=== PATIENT | female | born 1995 | race Caucasian/White ===

== ENCOUNTER 2019-07-08 04:29 | Emergency (ER) | payer OTHER, SELFPAY ==
[2019-07-08 04:36] VITALS: BP 119/101; PULSE 92; RESP 15; TEMP 36.7; O2SAT 98; BMI 27.3
--- NOTE | 2019-07-08 04:40 | DI.US.S_ITS ---
PROCEDURE: US ABDOMEN LIMITED INDICATIONS: EPIGASTRIC PAIN RADIATING TO BACK TECHNIQUE: Real-time focused scanning was performed of the abdomen, with image documentation. COMPARISON: None. FINDINGS: There is a 1.9 cm mobile gallstone seen. The gallbladder wall is not thickened, measuring 3 mm or less. No specific pericholecystic fluid is seen. The sonographic Garner sign is negative. There is no biliary dilatation, the common bile duct measures 4-5 mm. The pancreas is not well-seen. The liver is unremarkable. IMPRESSION: There is a mobile gallstone seen, without additional sonographic signs of cholecystitis. No biliary dilatation. Note: No significant discrepancy from the preliminary report. Dictated by: Bonifacio Ward M.D. on 07/08/2019 at 9:09 Approved by: Bonifacio Ward M.D. on 07/08/2019 at 9:10
--- NOTE | 2019-07-08 04:52 | PC.NURSE ---
patient reports no abdominal pain, she states her mouth started watering and she immetiatly threw up after. It was dark and she did not see the contents of the vomit.
[2019-07-08 04:58] LABS: Add Manual Diff / Slide Review NO; Basophils Absolute Auto 100 /uL (0-100); Basophils Percent Auto 0.7 % (0-2); Eosinophils Absolute Auto 100 /uL (0-450); Eosinophils Percent Auto 1.3 % (2-4); Hematocrit 43.3 % (36-46); Hemoglobin 15.5 g/dL (12.0-16.0); Lymphocytes Absolute Auto 4300 /uL (1100-4500); Lymphocytes Percent Auto 54.4 % (25-40); Mean Corpuscular HGB Conc 35.9 % (30-36); Mean Corpuscular Hemoglobin 30.8 PG (26-34); Monocytes Absolute Auto 700 /uL (0-900); Monocytes Percent Auto 9.1 % (3-14); Neutrophils Absolute Auto 2700 /uL (1500-7000); Neutrophils Percent Auto 34.5 % (50-75); Platelet Count 241 X10^3/uL (150-400); Red Blood Cell Count 5.03 X10^6/uL (4.0-5.2); Red Cell Distribution Width 12.8 % (11.6-14.8); White Blood Cell Count 7.9 X10^3/uL (4.5-11.0)
[2019-07-08 05:05] LABS: Alanine Aminotransferase 28 IU/L (<35); Albumin 4.4 g/dL (3.5-5.0); Albumin Globulin Ratio 1.6 (1.0-2.8); Alkaline Phosphatase 22 U/L (38-126); Aspartate Aminotransferase 29 IU/L (14-36); Bilirubin Total 0.4 mg/dL (0.2-1.3); Blood Urea Nitrogen 12 mg/dL (7-17); Calcium 9.9 mg/dL (8.4-10.2); Carbon Dioxide 27 mmol/L (22-32); Chloride 105 mmol/L (98-107); Estimated Glomerular Filt Rate > 60.0 mL/min (>60); Globulin 2.7 g/dL (1.7-4.1); Glucose 109 mg/dL (70-100); HEMOLYSIS < 15 (0-50); Lipase 129 U/L (23-300); Potassium 3.5 mmol/L (3.4-5.1); Sodium 141 mmol/L (137-145); Total Protein 7.1 g/dL (6.3-8.2)
--- NOTE | 2019-07-08 05:05 | ED_ITS ---
HPI - Abdominal Pain General Chief Complaint: Abdominal Pain Stated Complaint: gas bubble in stomach Time Seen by Provider: 07/08/19 04:31 Source: patient Mode of arrival: Ambulatory Limitations: no limitations History of Present Illness HPI narrative: 23-year-old female nonsmoker with benign medical history presents with a chief complaint of severe epigastric pain with radiation to the back off and on over the past month or so. She denies any obvious provocation or palliation. She presents tonight because she had a large volume of emesis just prior to arrival. She denies any fever or chills. She denies any injury. She has been having bowel movements without difficulty. MD complaint: abdominal pain Onset (ago): week(s) Pain Consistency: intermittent Location: epigastric Severity: severe Radiation: back Relieving factors: nothing Exacerbating factors: nothing Associated symptoms: nausea and vomiting Related Data Previous Rx's Medication Instructions Recorded hydrocodone-acetaminophen 1 tab PO Q4-6H PRN #10 tab 07/08/19 ondansetron 4 mg PO TID-QID PRN #10 tab 07/08/19 Allergies Allergy/AdvReac Type Severity Reaction Status Date / Time No Known Drug Allergies Allergy Verified 07/08/19 06:23 Review of Systems Constitutional Constitutional: Denies chills, Denies fatigue, Denies fever(s), Denies frequent falls, Denies lethargy and Denies weakness Eyes Eyes: Denies change in vision, Denies eye discharge, Denies irritation and Denies loss of vision ENT Ears, Nose, Mouth, and Throat: Denies change in voice, Denies dizziness, Denies neck pain, Denies sore throat and Denies throat swelling Cardiovascular Cardiovascular: Denies chest pain, Denies irregular heart rhythm, Denies lightheadedness, Denies palpitations, Denies dyspnea, Denies dyspnea on exertion and Denies orthopnea Respiratory Respiratory: Denies cough, Denies dyspnea, Denies dyspnea on exertion and Denies wheezing Gastrointestinal Gastrointestinal: Reports abdominal pain, Denies change in bowel habits, Denies diarrhea, Reports nausea and Reports vomiting Genitourinary Genitourinary: Denies hematuria, Denies flank pain, Denies urinary incontinence and Denies urinary urgency Musculoskeletal Musculoskeletal: Reports back pain, Denies muscle weakness, Denies neck pain, Denies numbness and Denies tingling Integumentary/Breasts Skin/Breast: Denies pruritus, Denies erythema, Denies rash and Denies wounds Neurologic Neurologic: Denies behavioral changes, Denies confusion, Denies dizziness, Denies frequent falls, Denies loss of vision, Denies numbness, Denies tingling and Denies weakness Psychiatric Psychiatric: Denies anxiety, Denies behavioral changes, Denies confusion, Denies depression, Denies homicidal ideation and Denies suicidal ideation Endocrine Endocrine: Denies fatigue, Denies flushing and Denies palpitations Hematologic/Lymphatic Hematologic/Lymphatic: Denies easy bruising Allergic/Immunologic Allergic/Immunologic: Denies urticaria, Denies throat swelling and Denies wheezing Patient History Social History Smoking Status: Never smoker alcohol intake frequency: a few times a month Substance Use Type: does not use Exam Narrative Exam Narrative: GENERAL: [23] year old patient appears stated age. Well- nourished, well-developed patient, in mild distress. HEAD: Atraumatic. Normocephalic. EYES: Pupils equal round and reactive. Extraocular motions intact. No scleral icterus. No injection or drainage. ENT: Nose without bleeding, purulent drainage. Throat without erythema, tonsillar hypertrophy or exudate. Airway patent. NECK: Trachea midline. Non tender CARDIOVASCULAR: Regular rate and rhythm without murmurs, gallops, or rubs. RESPIRATORY: Clear to auscultation. Breath sounds equal bilaterally. No wheezes, rales, or rhonchi. GASTROINTESTINAL: Abdomen soft, non-tender, nondistended. EXTREMITIES: No edema or joint tenderness. BACK: Nontender without deformity or crepitance. No flank tenderness. NEURO: AOx3. SKIN: No rash or erythema of visible areas Initial Vital Signs Initial Vital Signs: Vital Signs Temperature 98.1 F 07/08/19 04:36 Pulse Rate 92 H 07/08/19 04:36 Respiratory Rate 15 07/08/19 04:36 Blood Pressure 119/101 H 07/08/19 04:36 Pulse Oximetry 98 07/08/19 04:36 Course Orders Ordered: Discontinued Medications Hydrocodone Bitart/Acetaminophen (Vicodin 5/325 Prepack) 1 bottle MISC SEEINSTR ONE Stop: 07/08/19 05:20 Last Admin: 07/08/19 05:31 Dose: 1 bottle Documented by: MAHIN Sodium Chloride (Normal Saline 0.9%) 1,000 mls @ 1,000 mls/hr IV BOLUS ONE Stop: 07/08/19 05:37 Last Infusion: 07/08/19 05:31 Dose: 0 mls/hr Documented by: Admin: 07/08/19 05:11 Dose: 1,000 mls/hr Documented by: MAHIN Ondansetron HCl (Zofran Odt Prepack) 1 bottle MISC SEEINSTR ONE Stop: 07/08/19 05:20 Last Admin: 07/08/19 05:31 Dose: 1 bottle Documented by: MAHIN Vital Signs Vital signs: Vital Signs - 8 hr 07/08/19 04:36 Temperature 98.1 F Pulse Rate 92 H Respiratory Rate 15 Blood Pressure 119/101 H Pulse Oximetry 98 MDM - Abdominal Pain Lab Data Result diagrams: 07/08/19 04:45 07/08/19 04:45 Labs: Lab Results 07/08/19 07/08/19 Range/Units 04:45 04:45 WBC 7.9 (4.5-11.0) X10^3/uL RBC 5.03 (4.0-5.2) X10^6/uL Hgb 15.5 (12.0-16.0) g/dL Hct 43.3 (36-46) % MCV 86.0 (80-100) fL MCH 30.8 (26-34) PG MCHC 35.9 (30-36) % RDW 12.8 (11.6-14.8) % Plt Count 241 (150-400) X10^3/uL Neut % (Auto) 34.5 L (50-75) % Lymph % (Auto) 54.4 H (25-40) % [place] % (Auto) 9.1 (3-14) % Eos % (Auto) 1.3 L (2-4) % Baso % (Auto) 0.7 (0-2) % Neut # (Auto) 2700 (8646-1280) /uL Lymph # (Auto) 4300 (0602-7750) /uL [place] # (Auto) 700 (0-900) /uL Eos # (Auto) 100 (0-450) /uL Baso # (Auto) 100 (0-100) /uL Sodium 141 (137-145) mmol/L Potassium 3.5 (3.4-5.1) mmol/L Chloride 105 (98-107) mmol/L Carbon Dioxide 27 (22-32) mmol/L BUN 12 (7-17) mg/dL Creatinine 1.00 (0.52-1.04) mg/dL Estimated GFR > 60.0 (>60) mL/min BUN/Creatinine Ratio 12.0 (6-22) Glucose 109 H (70-100) mg/dL Calcium 9.9 (8.4-10.2) mg/dL Total Bilirubin 0.4 (0.2-1.3) mg/dL AST 29 (14-36) IU/L ALT 28 (<35) IU/L Alkaline Phosphatase 22 L (38-126) U/L Total Protein 7.1 (6.3-8.2) g/dL Albumin 4.4 (3.5-5.0) g/dL Globulin 2.7 (1.7-4.1) g/dL Albumin/Globulin Ratio 1.6 (1.0-2.8) Lipase 129 (23-300) U/L Imaging Data US - abdomen: Radiologist's impression: [place] [address] Ultrasound Report Signed Patient: Royal Zepeda [facility]#: [id number] : 1995Acct:[id number] Age/Sex: 23 / FDate of Service: 07/08/19 Loc: ED Accession Number: [id number] Procedure: US abdomen limited Ordering Provider: Karl Acuña D.O. PROCEDURE: US ABDOMEN LIMITED INDICATIONS: EPIGASTRIC PAIN RADIATING TO BACK TECHNIQUE: Real-time focused scanning was performed of the abdomen, with image documentation. COMPARISON: None. FINDINGS: There is a 1.9 cm mobile gallstone seen. The gallbladder wall is not thickened, measuring 3 mm or less. No specific pericholecystic fluid is seen. The sonographic Garner sign is negative. There is no biliary dilatation, the common bile duct measures 4-5 mm. The pancreas is not well-seen. The liver is unremarkable. IMPRESSION: There is a mobile gallstone seen, without additional sonographic signs of cholecystitis. No biliary dilatation. Note: No significant discrepancy from the preliminary report. Dictated by: Bonifacio Ward M.D. on 07/08/2019 at 9:09 Approved by: Bonifacio Ward M.D. on 07/08/2019 at 9:10 Discharge Plan Departure Patient Disposition: Home Clinical Impression: Gallbladder pain Discharge Date/Time: 07/08/19 05:42 Instructions: Gallstones Activity Restrictions/Additional Instructions: *You have been diagnosed with [cholelithiasis] *What to do: *Take medications as directed *Follow up with your primary care provider in 2-3 days, call for an appointment. Let them know you were seen in the Emergency Department and that we ask that you be seen in follow up *Return to ER if you should have any new, worsening or concerning symptoms, such as [worsening pain, fever over 101 F, yellowing of the skin, persistent vomiting or other bothersome symptoms Prescriptions: New hydrocodone-acetaminophen 5-325 mg tablet 1 tab PO Q4-6H PRN (Reason: pain) Qty: 10 RF: 0 ondansetron 4 mg tablet,disintegrating 4 mg PO TID-QID PRN (Reason: nausea and vomiting) Qty: 10 RF: 0 Referrals: Tess Benavides MD [Physician] -
[2019-07-08] MEDS: SODIUM CHLORIDE 0.9% 1,000 ML 1000 ML IV (05:11)
[2019-07-08 05:13] VITALS: BP 108/72; PULSE 93; RESP 15; O2SAT 97
[2019-07-08] MEDS: HYDROCODONE/ACET 5/325 PREPACK 1 BOTTLE MISC (05:31)
[2019-07-08] MEDS: ONDANSETRON 4 MG ODT PREPACK 1 BOTTLE MISC (05:31)
== END 2019-07-08 05:42 | disposition home or self-care (01) ==
LOC: ED 05:30
PROVIDERS: Emergency Provider Emergency Medicine
DX: K80.20 Calculus of gallbladder without cholecystitis without obstruction (principal)
CPT/HCPCS: 36415; 76705; 80053; 83690; 85025; 99283; 99284

== ENCOUNTER 2019-07-25 11:56 | Day surgery (SDC) | payer OTHER, SELFPAY ==
[2019-07-25] VITALS (12 sets, daily range): BP systolic 90–126; BP diastolic 50–76; PULSE 55–90; RESP 9–20; TEMP 36.2–37.2; O2SAT 94–100; BMI 33.1
--- NOTE | 2019-07-25 | PATH_ITS ---
[facility] Accession Number: [id number] . 01 Material submitted: . gallbladder - GALLBLADDER . 02 Diagnosis: Gallbladder, Laparoscopic Cholecystectomy: Gallbladder with cholesterolosis and cholelithiasis. One benign cystic duct lymph node (0). MRV 07/27/2019 1040 Local . 02 Electronically signed: . Qiana Priest MD, Pathologist NPI- [id number] . 01 Gross description: . Received in formalin, labeled gallbladder, is an intact gallbladder (length-9.2 cm, diameter-2.6 cm) with green smooth shiny serosa and a patent cystic duct. A possible lymph node (1.0 x 0.8 x 0.4 cm) is identified. The lumen contains dark green viscous bile and on finney-yellow smooth hard calculus (1.8 x 1.3 x 0.8 cm) with a clear crystalline cut surface. The mucosa is green smooth and flat. The wall is up to 0.1 cm thick. No nodules, masses or lesions are identified. Section code: (A1) cystic duct resection margin and two serial sections from the body; (A2) two longitudinal sections from the fundus; (A3) one bisected lymph node. ([id number]) /MRV 07/26/2019 1338 Local . 02 Pathologist provided ICD-10: K80.50 . 02 CPT . 498805 Performed at: 01 [facility] [address] [id number] MD Gigi Peace MD Phone: [phone] Performed at: 02 [facility] [address] [place], [place] [id number] MD Fartun Alcantar MD Phone: [phone]
[2019-07-25] MEDS: LACTATED RINGERS 1,000 ML 100 ML IV ×2 (12:31→14:41)
--- NOTE | 2019-07-25 12:33 | PM.PREOP ---
Pre-operative Note Interval Note History & Physical reviewed/Exam performed by Physician: Yes Changes to H&P: No
[2019-07-25] MEDS: CEFAZOLIN 2 GM/100 ML FROZ.PIGGY IV (12:59)
--- NOTE | 2019-07-25 13:31 | SUR.OPER ---
Supine on padded OR bed, head on pillow, safety belt at thigh, left arm padded and tucked at side. Right arm secured on padded arm oard <90 degrees abduction. Legs uncrossed. Padded footboard in place. Tape over blanket to secure lower legs.
[2019-07-25] MEDS: BUPIVACAINE 0.25% (PF) VIAL 30 ML INJ (13:36)
--- NOTE | 2019-07-25 14:31 | PM.OP.1 ---
Operative Date/Time/Diagnoses Date of procedure: 07/25/19 Time of procedure: 14:31 Pre-op diagnosis: Biliary colic Post-op diagnosis: same Procedure & Clinicians Procedure: Laparoscopic cholecystectomy Same procedure as scheduled: Yes Indications: 23-year-old female with biliary colic and ultrasound demonstrating gallstones presents for elective cholecystectomy. Surgeon: Sotero Tejeda Click Yes if Unassisted: Yes Anesthesia Type: General Operative Notes Findings: Gallstone Estimated Blood Loss (mL): 50 Procedure in detail: The patient was brought to the operating room placed supine on the table. Bilateral lower extremity compression devices were applied. General anesthesia was induced and they were intubated with an endotracheal tube. They received 2 g of Ancef prior to skin incision. A time-out was performed to ensure the correct patient procedure necessary equipment within the operating room. They were then prepped and draped in the usual sterile fashion. Infraumbilical incision was made the umbilical stalk was grasped and elevated and the fascia was sharply incised. The abdomen was entered atraumatically. A 10 mm trocar was then placed into the abdomen. Pneumoperitoneum was established. The laparoscopic camera was inserted into the abdomen inspection was made that demonstrated no evidence of injury upon entry. We then placed our working ports the 1st 5 mm port high in the epigastrium and then 2 in the right upper quadrant. The gallbladder was grasped and retracted over the liver and grasped laterally by the fundus. The triangle of Calot was exposed. Gallbladder was without evidence of clot of acute cholecystitis. The triangle of calot was then skeletonized using hook electrocautery and demonstrated the cystic duct clearly entering the gallbladder the cystic artery and the liver and in the background. With the critical view of safety established the cystic duct was clipped twice proximally and once distally and then sharply divided and the cystic artery was taken in the same fashion. Next the gallbladder was removed from the liver bed using electro cautery. The liver bed was then inspected for hemostasis and this was achieved. The abdomen was irrigated with sterile saline and inspection was made that showed the clips in good position. The specimen was removed using Endo-Catch. The abdomen was desufflated. The the fascia of the umbilicus was closed with 0 Vicryl in a lubgra-um-whbrn fashion. Skin incisions were irrigated and closed with 4-0 Monocryl. The wounds were sealed with Dermabond. Patient emerged from general anesthesia was extubated and transferred to the postoperative care unit missed stable condition. The sponge and instrument count at the end of the operation was correct. Complications: none Post-operative Condition: stable Disposition: same day surgery
[2019-07-25] MEDS: fentaNYL 100 MCG/2 ML INJ IV (14:37)
--- NOTE | 2019-07-25 14:50 | SUR.PHASEI ---
Addendum entered by Tamika Emerson R.N. 07/25/19 15:26: states that she feels that her breathing is normal; no distress. Original Note: 1445 Sitting up, drinking water, states that her pain has improved and that she's tolerating it well. Applesauce given in prep for PO rx
[2019-07-25] MEDS: OXYCODONE/ACETAMINOPHEN 5/325 TABLET 1 TAB PO (14:53)
--- NOTE | 2019-07-25 15:21 | SUR.PHASEI ---
1423 to [facility], very drowsy, acknowledges minor pain, doesn't want Rx 1430 c/o difficulty breathing shortly after arrival, resp unlabored, lungs clear/diminished, coughed, which improved air exchange. C/o feeling like her airway is restricted in her throat; no stridor audible or w/stethascope. 1437 Dr. Tejeda here, informed of the above; no orders, no positional evidence, no evidence of difficulty breathing; explained to the patient her lung sounds and O2 sat. HOB up. States that she has anxiety; denied taking medication for it at home or wanting medication presently.
--- NOTE | 2019-07-25 15:26 | SUR.PHASEI ---
1517 to [facility], report given, dozing intermittently. Report given, bag given so that she can get her cell phone and call her ride and mother. Stable
== END 2019-07-25 16:13 | disposition home or self-care (01) ==
PROVIDERS: Visit Provider Surgery
PROC: 0FT44ZZ Resection of Gallbladder, Percutaneous Endoscopic Approach (ICD-10-PCS; CPT 47562; principal; 2019-07-25 15:45)
DX: K80.40 Calculus of bile duct with cholecystitis, unspecified, without obstruction (principal); F41.9 Anxiety disorder, unspecified; E66.9 Obesity, unspecified
CPT/HCPCS: 47562; J0690; J1100; J1170; J1885; J2250; J2405; J2704; J3010

== ENCOUNTER 2019-09-11 18:51 | Emergency (ER) | payer OTHER, SELFPAY ==
[2019-09-11 18:51] VITALS: BP 128/79; PULSE 71; RESP 18; TEMP 36.5; O2SAT 100; BMI 31.8
[2019-09-11 19:24] LABS: INR 0.9 (0.9-1.3); Prothrombin Time 10.6 SECONDS (10.1-12.7)
[2019-09-11 19:26] LABS: Add Manual Diff / Slide Review NO; Basophils Absolute Auto 0 /uL (0-100); Basophils Percent Auto 0.4 % (0-2); Eosinophils Absolute Auto 100 /uL (0-450); Eosinophils Percent Auto 1.3 % (2-4); Hematocrit 40.5 % (36-46); Hemoglobin 14.2 g/dL (12.0-16.0); Lymphocytes Absolute Auto 3500 /uL (1100-4500); Lymphocytes Percent Auto 43.7 % (25-40); Mean Corpuscular HGB Conc 35.1 % (30-36); Mean Corpuscular Hemoglobin 30.9 PG (26-34); Mean Corpuscular Volume 88.1 fL (80-100); Monocytes Absolute Auto 700 /uL (0-900); Monocytes Percent Auto 8.9 % (3-14); Neutrophils Absolute Auto 3700 /uL (1500-7000); Neutrophils Percent Auto 45.7 % (50-75); Platelet Count 259 X10^3/uL (150-400); White Blood Cell Count 8.1 X10^3/uL (4.5-11.0)
[2019-09-11 19:27] LABS: PTT Partial Thromboplastin Tim 30 SECONDS (26.4-36.2)
[2019-09-11 19:28] LABS: Alanine Aminotransferase 31 IU/L (<35); Albumin 4.3 g/dL (3.5-5.0); Albumin Globulin Ratio 1.3 (1.0-2.8); Alkaline Phosphatase 22 U/L (38-126); Aspartate Aminotransferase 40 IU/L (14-36); BUN Creatinine Ratio 17.5 (6-22); Bilirubin Total 0.3 mg/dL (0.2-1.3); Blood Urea Nitrogen 14 mg/dL (7-17); Calcium 9.5 mg/dL (8.4-10.2); Carbon Dioxide 29 mmol/L (22-32); Chloride 103 mmol/L (98-107); Estimated Glomerular Filt Rate > 60.0 mL/min (>60); Globulin 3.2 g/dL (1.7-4.1); Glucose 106 mg/dL (70-100); HEMOLYSIS < 15 (0-50); Lipase 115 U/L (23-300); Potassium 3.6 mmol/L (3.4-5.1); Sodium 140 mmol/L (137-145); Total Protein 7.5 g/dL (6.3-8.2)
[2019-09-11] MEDS: SODIUM CHLORIDE 0.9% 1,000 ML 1000 ML IV (20:15)
[2019-09-11] MEDS: ONDANSETRON 4 MG/2 ML INJ IV (20:15)
--- NOTE | 2019-09-11 20:44 | ED_ITS ---
HPI - Abdominal Pain General Chief Complaint: Abdominal Pain Stated Complaint: Severe Abd Pain and Nausea Time Seen by Provider: 09/11/19 20:44 Source: patient Mode of arrival: Ambulatory Limitations: no limitations History of Present Illness HPI narrative: The patient presents with epigastric abdominal pain. The pain has been present for months, but more severe the last couple weeks. The pain is sharp, occurring in the mid abdomen epigastric area. The pain does not radiate. The pain is sometimes worsened after eating. She has no pain shooting to her chest. She has no associated dyspnea. She is a nonsmoker. She does use alcohol. She does not use drugs. She is on no medications. In their previous evaluation for abdominal pain, gallstones for discovered. She underwent cholecystectomy about 6 weeks ago. The pain is not changed following cholecystectomy. She has no other significant medical problems. She is on no regular prescribed medications. Related Data Home Medications Medication Instructions Recorded Confirmed biotin 1 mg PO DAILY 07/25/19 08/14/19 multivitamin [Multiple Vitamins] 1 tab PO DAILY 07/25/19 08/14/19 Previous Rx's Medication Instructions Recorded hydrocodone-acetaminophen 1 tab PO Q4-6H PRN #10 tab 07/08/19 ondansetron 4 mg PO TID-QID PRN #10 tab 07/08/19 acetaminophen [Tylenol] 650 mg PO QID PRN #60 cap 07/25/19 docusate sodium [Colace] 100 mg PO BID #30 cap 07/25/19 tramadol 50 mg PO Q6H PRN #30 tab 07/25/19 famotidine [Pepcid] 20 mg PO DAILY #30 tab 09/11/19 Allergies Allergy/AdvReac Type Severity Reaction Status Date / Time No Known Drug Allergies Allergy Verified 09/11/19 18:57 Review of Systems Review of Systems ROS Unobtainable: All systems reviewed & are unremarkable except as noted in HPI and below Constitutional Constitutional: Denies chills, Denies fever(s), Denies lethargy and Denies weakness Eyes Comments: No eye changes. ENT Ears, Nose, Mouth, and Throat: Denies mouth lesions and Denies sore throat Cardiovascular Cardiovascular: Denies chest pain Respiratory Respiratory: Denies chest congestion and Denies cough Gastrointestinal Gastrointestinal: Reports as per HPI, Reports abdominal pain, Denies bloating, Denies diarrhea and Denies vomiting Genitourinary Comments: Currently on her menstrual cycle. No dysuria. Musculoskeletal Musculoskeletal: Denies back pain and Denies numbness Integumentary/Breasts Skin/Breast: Denies pruritus, Denies erythema and Denies rash Neurologic Neurologic: Denies numbness and Denies weakness Patient History Medical History Anxiety (Acute) Obesity (Acute) Surgical History (Updated 09/11/19 @ 22:08 by Regan Walls MD) History of cholecystectomy (Acute) History of tonsillectomy (Acute) Social History household members: friend(s) Smoking Status: Never smoker alcohol intake: current Smoking Status: Never smoker alcohol intake frequency: a few times a month Substance Use Type: does not use Exam Initial Vital Signs Initial Vital Signs: Vital Signs Temperature 97.7 F 09/11/19 18:51 Pulse Rate 71 09/11/19 18:51 Respiratory Rate 18 09/11/19 18:51 Blood Pressure 128/79 09/11/19 18:51 Pulse Oximetry 100 09/11/19 18:51 Const General: cooperative and well developed Nutritional Appearance: well nourished HENMT Mouth: oral mucosae normal Eyes Conjunctivae: conjunctivae normal and other (No icterus) Resp Effort & Inspection: normal respiratory effort and able to speak in complete sentences Auscultation: clear to auscultation bilaterally, no rales, no rhonchi and no wheezes Cardio Rate: regular rate Rhythm: regular rhythm Heart Sounds: S1 normal and S2 normal GI Other: Epigastric abdominal pain with slight guarding, no distention. No palpable masses. Normal bowel sounds. Back/Spine/Pelvis Back: No CVA tenderness Skin Lesions: lesions noted Rashes: rash noted Neuro General: alert, oriented x3, gait normal and no focal motor deficits Speech: speech normal Extrem General: no pedal edema and no calf tenderness Course Course Course Narrative: The patient was given IV Protonix, a GI cocktail. She notes the GI cocktail has numbness her esophagus or stomach. She is feeling better. LFTs are normal. Labs are otherwise normal. The source for pain is likely associated with the stomach. I discussed GERD versus gastritis versus an ulcer. She received Protonix, she will be discharged on Pepcid. She is advised arrange follow-up with her doctor at [facility]. Orders Ordered: ED Orders 09/11/19 19:00 Complete Blood Count AUTO DIFF Stat Comprehensive Metabolic Panel Stat Lipase Stat Partial Thromboplastin Time Stat Prothrombin Time INR Stat 09/11/19 19:10 EKG-12 Lead Stat Discontinued Medications Al Hydrox/Mg Hydrox/Simethicone 20 ml/ Lidocaine HCl 15 ml 0 ml PO NOW ONE Stop: 09/11/19 20:54 Last Admin: 09/11/19 21:21 Dose: 35 ml Documented by: SARAI Sodium Chloride (Normal Saline 0.9%) 1,000 mls @ 1,000 mls/hr IV BOLUS ONE Stop: 09/11/19 21:09 Last Infusion: 09/11/19 21:32 Dose: 0 mls/hr Documented by: Admin: 09/11/19 20:15 Dose: 1,000 mls/hr Documented by: BRAULIO Ondansetron HCl (Zofran) 4 mg IV NOW ONE Stop: 09/11/19 20:11 Last Admin: 09/11/19 20:15 Dose: 4 mg Documented by: BRAULIO Pantoprazole Sodium (Protonix) 40 mg IV NOW ONE Stop: 09/11/19 20:53 Last Admin: 09/11/19 21:21 Dose: 40 mg Documented by: SARAI Vital Signs Vital signs: Vital Signs - 8 hr 09/11/19 18:51 Temperature 97.7 F Pulse Rate 71 Respiratory Rate 18 Blood Pressure 128/79 Pulse Oximetry 100 MDM - Abdominal Pain Lab Data Result diagrams: 09/11/19 19:00 09/11/19 19:00 Labs: Lab Results 09/11/19 09/11/19 09/11/19 Range/Units 19:00 19:00 19:00 WBC 8.1 (4.5-11.0) X10^3/uL RBC 4.60 (4.0-5.2) X10^6/uL Hgb 14.2 (12.0-16.0) g/dL Hct 40.5 (36-46) % MCV 88.1 (80-100) fL MCH 30.9 (26-34) PG MCHC 35.1 (30-36) % RDW 13.0 (11.6-14.8) % Plt Count 259 (150-400) X10^3/uL Neut % (Auto) 45.7 L (50-75) % Lymph % (Auto) 43.7 H (25-40) % [place] % (Auto) 8.9 (3-14) % Eos % (Auto) 1.3 L (2-4) % Baso % (Auto) 0.4 (0-2) % Neut # (Auto) 3700 (6643-6750) /uL Lymph # (Auto) 3500 (3557-8551) /uL [place] # (Auto) 700 (0-900) /uL Eos # (Auto) 100 (0-450) /uL Baso # (Auto) 0 (0-100) /uL PT 10.6 (10.1-12.7) SECONDS INR 0.9 (0.9-1.3) APTT 30 (26.4-36.2) SECONDS Sodium 140 (137-145) mmol/L Potassium 3.6 (3.4-5.1) mmol/L Chloride 103 (98-107) mmol/L Carbon Dioxide 29 (22-32) mmol/L BUN 14 (7-17) mg/dL Creatinine 0.80 (0.52-1.04) mg/dL Estimated GFR > 60.0 (>60) mL/min BUN/Creatinine Ratio 17.5 (6-22) Glucose 106 H (70-100) mg/dL Calcium 9.5 (8.4-10.2) mg/dL Total Bilirubin 0.3 (0.2-1.3) mg/dL AST 40 H (14-36) IU/L ALT 31 (<35) IU/L Alkaline Phosphatase 22 L (38-126) U/L Total Protein 7.5 (6.3-8.2) g/dL Albumin 4.3 (3.5-5.0) g/dL Globulin 3.2 (1.7-4.1) g/dL Albumin/Globulin Ratio 1.3 (1.0-2.8) Lipase 115 (23-300) U/L Point of care testing: Point of Care Testing Test Results Negative Urine Dip Bedside Urine Glucose Negative Bedside Urine Bilirubin - Negative Bedside Urine Ketone - Negative Urine Specific [place] 1.025 Bedside Urine Occult Blood +/- Bedside Urine pH 6.5 Bedside Urine Protein - Negative Bedside Urine Urobilinogen - Negative Bedside Urine Nitrite - Negative Bedside Urine Leukocytes - Negative Esterase Discharge Plan Departure Patient Disposition: Home Clinical Impression: Epigastric abdominal pain Instructions: DI for Abdominal Pain-Adult Activity Restrictions/Additional Instructions: The pain seems to be coming from her stomach. This could be an ulcer, gastritis, or acid reflux. The treatment is similar for all of these stomach and esophagus issues. I will start you on 1 of the medications. Pepcid 20 mg daily. Recheck with her doctor in 10 days the see if symptoms have improved. Return to the ER as needed. Prescriptions: New famotidine [Pepcid] 20 mg tablet 20 mg PO DAILY Qty: 30 RF: 0 No Action hydrocodone-acetaminophen 5-325 mg tablet 1 tab PO Q4-6H PRN (Reason: pain) Qty: 10 RF: 0 ondansetron 4 mg tablet,disintegrating 4 mg PO TID-QID PRN (Reason: nausea and vomiting) Qty: 10 RF: 0 multivitamin [Multiple Vitamins] Tablet 1 tab PO DAILY RF: 0 biotin 1 mg Capsule 1 mg PO DAILY RF: 0 tramadol 50 mg tablet 50 mg PO Q6H PRN (Reason: pain) Qty: 30 RF: 0 docusate sodium [Colace] 100 mg capsule 100 mg PO BID Qty: 30 RF: 0 acetaminophen [Tylenol] 325 mg capsule 650 mg PO QID PRN (Reason: pain) Qty: 60 RF: 0 Referrals: Mojgan Reyes [Primary Care Provider] -
[2019-09-11] MEDS: MAG HYDROX/ALUMINUM/SIMETH SUS 20 ML, LIDOCAINE VISCOUS 2% 15 ML PO (21:21)
[2019-09-11] MEDS: PANTOPRAZOLE 40 MG VIAL IV (21:21)
[2019-09-11 22:26] VITALS: BP 111/76; PULSE 61; RESP 14; TEMP 36.9; O2SAT 100
== END 2019-09-11 22:28 | disposition home or self-care (01) ==
PROVIDERS: Emergency Medicine; Emergency Provider Emergency Medicine
DX: R10.13 Epigastric pain (principal)
CPT/HCPCS: 36415; 80053; 81003; 81025; 83690; 85025; 85610; 85730; 93005; 96361; 96374; 96375; 99284; C9113; J2405

== ENCOUNTER 2020-08-11 18:28 | Emergency (ER) | payer OTHER, SELFPAY ==
[2020-08-11 18:38] VITALS: PULSE 105; O2SAT 98
[2020-08-11 18:39] VITALS: BP 143/87; PULSE 104; O2SAT 99
--- NOTE | 2020-08-11 18:40 | DI.US.S_ITS ---
PROCEDURE: US PELVIC COMPLETE INDICATIONS: BLEEDING X 8 MOS TECHNIQUE: Real-time scanning was performed of the pelvic organs, with image documentation. Additional endovaginal scanning was necessary due to incomplete visualization of the adnexal and endometrial structures by transabdominal scanning. COMPARISON: None. FINDINGS: Transabdominal scanning: Limited scanning through the kidneys shows no hydronephrosis. No pathologic free abdominal or pelvic fluid. Endovaginal scanning: Uterus: Uterus is retroverted measuring 5.7 x 3.5 x 5.4 cm. The endometrium measures 5.6 mm in combined thickness. Endometrium appears slightly heterogeneous. Ovaries: Right ovary measures 3.1 x 1.3 x 1.4 cm. Left ovary measures 4.5 x 2.7 x 3.3 cm. There is a 3.1 x 2.4 x 2.9 cm simple appearing cyst in the left ovary. IMPRESSION: 1. Endometrium appears slightly heterogeneous but normal in thickness. 2. A simple appearing cyst in left ovary measuring 3.1 cm. A follow-up pelvic ultrasound is suggested in 6-12 months. Dictated by: Brittany Canchola M.D. on 08/11/2020 at 19:31 Approved by: Brittany Canchola M.D. on 08/11/2020 at 19:33
[2020-08-11 18:46] VITALS: BP 143/87; PULSE 99; RESP 16; TEMP 36.9; O2SAT 99; BMI 34.5
--- NOTE | 2020-08-11 18:46 | ED.GENADULT ---
HPI - General Adult General Chief complaint: Vaginal Bleeding Stated complaint: bleeding for 8 months, pain Time Seen by Provider: 08/11/20 18:32 Source: patient Mode of arrival: Ambulatory Limitations: no limitations History of Present Illness HPI narrative: pt has the nexplanon placed approximately 8 months ago. 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 She states she has had vaginal bleeding for the past 8 months. Because she has been on appointment she has not followed up with the technical marketing consultant provider who placed the device. She has not followed up since she has been home. States that for the past couple days her bleeding and abdominal cramping has worsened. No prior issues with this. She has not had any other issues prior control methods. This is the 1st time that she has had this particular modality. No fevers. No urinary symptoms. Related Data Home Medications Medication Instructions Recorded Confirmed biotin 1 mg PO DAILY 07/25/19 08/14/19 multivitamin [Multiple Vitamins] 1 tab PO DAILY 07/25/19 08/14/19 Previous Rx's Medication Instructions Recorded hydrocodone-acetaminophen 1 tab PO Q4-6H PRN #10 tab 07/08/19 ondansetron 4 mg PO TID-QID PRN #10 tab 07/08/19 acetaminophen [Tylenol] 650 mg PO QID PRN #60 cap 07/25/19 docusate sodium [Colace] 100 mg PO BID #30 cap 07/25/19 tramadol 50 mg PO Q6H PRN #30 tab 07/25/19 famotidine [Pepcid] 20 mg PO DAILY #30 tab 09/11/19 Allergies Allergy/AdvReac Type Severity Reaction Status Date / Time No Known Drug Allergies Allergy Verified 09/11/19 18:57 Review of Systems Constitutional Constitutional: Denies fever(s) Cardiovascular Cardiovascular: Denies chest pain and Denies dyspnea Respiratory Respiratory: Denies dyspnea Gastrointestinal Gastrointestinal: Reports abdominal pain, Denies change in bowel habits, Denies nausea and Denies vomiting Genitourinary Genitourinary: Denies dysuria Genitourinary: Denies dysuria and Reports vaginal discharge (Bleeding) Musculoskeletal Musculoskeletal: Denies arthralgias and Denies myalgias Integumentary/Breasts Skin/Breast: Denies lesions and Denies rash Neurologic Neurologic: Denies behavioral changes Psychiatric Psychiatric: Denies behavioral changes Hematologic/Lymphatic Hematologic/Lymphatic: Denies easy bleeding and Denies easy bruising Allergic/Immunologic Allergic/Immunologic: Denies urticaria Patient History Medical History Anxiety Obesity Surgical History (Updated 09/11/19 @ 22:08 by Regan Walls MD) History of cholecystectomy History of tonsillectomy Social History household members: friend(s) Smoking Status: Never smoker alcohol intake: current Smoking Status: Never smoker alcohol intake frequency: a few times a month Substance Use Type: does not use Exam Initial Vital Signs Initial Vital Signs: Vital Signs Pulse Rate 105 H 08/11/20 18:38 Pulse Oximetry 98 08/11/20 18:38 Const General: cooperative and comfortable Limitations: mental status not altered HENMT Head: normal to inspection and normocephalic Resp Effort & Inspection: normal respiratory effort Cardio Rate: tachycardic GI Inspection: non-distended Skin Lesions: no lesions Rashes: no rashes Neuro General: patient alert, patient awake and patient oriented x3 Cognition: normal cognition Speech: speech normal Extrem General: normal to inspection Psych Appearance: grossly normal and well kempt Course Orders Ordered: ED Orders 08/11/20 18:40 US pelvic complete Stat 08/11/20 19:25 Basic Metabolic Panel Stat Complete Blood Count AUTO DIFF Stat Partial Thromboplastin Time Stat Prothrombin Time INR Stat Vital Signs Vital signs: Vital Signs - 8 hr 08/11/20 18:38 08/11/20 18:39 08/11/20 18:46 Temperature 98.4 F Pulse Rate 105 H 104 H 99 H Respiratory Rate 16 Blood Pressure 143/87 H 143/87 H Pulse Oximetry 98 99 99 Medical Decision Making Lab Data Lab results reviewed: Yes I reviewed the patient's lab results. Result diagrams: 08/11/20 19:25 08/11/20 19:25 Labs: Lab Results 08/11/20 08/11/20 08/11/20 Range/Units 19:25 19:25 19:25 WBC 9.6 (4.5-11.0) X10^3/uL RBC 4.68 (4.0-5.2) X10^6/uL Hgb 14.4 (12.0-16.0) g/dL Hct 41.8 (36-46) % MCV 89.2 (80-100) fL MCH 30.7 (26-34) PG MCHC 34.4 (30-36) % RDW 13.2 (11.6-14.8) % Plt Count 261 (150-400) X10^3/uL Neut % (Auto) 49.2 L (50-75) % Lymph % (Auto) 37.8 (25-40) % [place] % (Auto) 11.1 (3-14) % Eos % (Auto) 1.3 L (2-4) % Baso % (Auto) 0.6 (0-2) % Neut # (Auto) 4700 (7123-9085) /uL Lymph # (Auto) 3600 (0395-8949) /uL [place] # (Auto) 1100 H (0-900) /uL Eos # (Auto) 100 (0-450) /uL Baso # (Auto) 100 (0-100) /uL PT 10.6 (10.1-12.7) SECONDS INR 0.9 (0.9-1.3) APTT 31 (26.4-36.2) SECONDS Sodium 138 (137-145) mmol/L Potassium 3.8 (3.4-5.1) mmol/L Chloride 105 (98-107) mmol/L Carbon Dioxide 27 (22-32) mmol/L BUN 10 (7-17) mg/dL Creatinine 0.72 (0.52-1.04) mg/dL Estimated GFR > 60.0 (>60) mL/min BUN/Creatinine Ratio 13.9 (6-22) Glucose 97 (70-100) mg/dL Calcium 9.0 (8.4-10.2) mg/dL Point of Care Testing Test Results Negative Urine Dip Bedside Urine Glucose Negative Bedside Urine Bilirubin - Negative Bedside Urine Ketone - Negative Urine Specific [place] 1.015 Bedside Urine Occult Blood - Negative Bedside Urine pH 6.0 Bedside Urine Protein - Negative Bedside Urine Urobilinogen - Negative Bedside Urine Nitrite - Negative Bedside Urine Leukocytes - Negative Esterase Point of care testing: Point of Care Testing Test Results Negative Urine Dip Bedside Urine Glucose Negative Bedside Urine Bilirubin - Negative Bedside Urine Ketone - Negative Urine Specific [place] 1.015 Bedside Urine Occult Blood - Negative Bedside Urine pH 6.0 Bedside Urine Protein - Negative Bedside Urine Urobilinogen - Negative Bedside Urine Nitrite - Negative Bedside Urine Leukocytes - Negative Esterase Imaging Data US - [employer]: Radiologist's Impression: [address] [id number] ReportSigned Patient: Royal Chavez AMR#: [id number]: 1995Acct:[id number]/Sex: 24 / FDate of Service: 08/11/20Loc: EDAccession Number: [id number] Procedure: US pelvic complete Ordering Provider: Tayo Wheeler D.O. PROCEDURE: US PELVIC COMPLETE INDICATIONS: BLEEDING X 8 MOS TECHNIQUE: Real-time scanning was performed of the pelvic organs, with image documentation. Additional endovaginal scanning was necessary due to incomplete visualization of the adnexal and endometrial structures by transabdominal scanning. COMPARISON: None. FINDINGS: Transabdominal scanning: Limited scanning through the kidneys shows no hydronephrosis. No pathologic free abdominal or pelvic fluid. Endovaginal scanning: Uterus: Uterus is retroverted measuring 5.7 x 3.5 x 5.4 cm. The endometrium measures 5.6 mm in combined thickness. Endometrium appears slightly heterogeneous. Ovaries: Right ovary measures 3.1 x 1.3 x 1.4 cm. Left ovary measures 4.5 x 2.7 x 3.3 cm. There is a 3.1 x 2.4 x 2.9 cm simple appearing cyst in the left ovary. IMPRESSION: 1. Endometrium appears slightly heterogeneous but normal in thickness. 2. A simple appearing cyst in left ovary measuring 3.1 cm. A follow-up pelvic ultrasound is suggested in 6-12 months. Dictated by: Brittany Canchola M.D. on 08/11/2020 at 19:31 Approved by: Brittany Canchola M.D. on 08/11/2020 at 19:[address] [facility] Narrative Medical decision making narrative: Pelvic ultrasound unremarkable. Blood counts unremarkable. Her symptoms did seem to start when she had the control method implanted. Informed her that she should contact the technical marketing consultant provider who placed the Nexplanon to discuss having it removed. Patient is deemed safe for discharge. She was given return precautions. She expressed understanding and agreement. Discharge Plan Departure Patient Disposition: Home Clinical Impression: Vaginal bleeding Instructions: DI for Vaginal Bleeding Activity Restrictions/Additional Instructions: Recommend that tomorrow you contact the technical marketing consultant provider who placed the Nexplanon to discuss having it removed. Continue to take Tylenol and/or ibuprofen for any discomfort. Return to the emergency department for any new or worsening symptoms Prescriptions: No Action hydrocodone-acetaminophen 5-325 mg tablet 1 tab PO Q4-6H PRN (Reason: pain) Qty: 10 RF: 0 ondansetron 4 mg tablet,disintegrating 4 mg PO TID-QID PRN (Reason: nausea and vomiting) Qty: 10 RF: 0 multivitamin [Multiple Vitamins] Tablet 1 tab PO DAILY RF: 0 biotin 1 mg Capsule 1 mg PO DAILY RF: 0 tramadol 50 mg tablet 50 mg PO Q6H PRN (Reason: pain) Qty: 30 RF: 0 docusate sodium [Colace] 100 mg capsule 100 mg PO BID Qty: 30 RF: 0 acetaminophen [Tylenol] 325 mg capsule 650 mg PO QID PRN (Reason: pain) Qty: 60 RF: 0 famotidine [Pepcid] 20 mg tablet 20 mg PO DAILY Qty: 30 RF: 0 Referrals: Mojgan Reyes [Primary Care Provider] -
[2020-08-11 19:32] LABS: Add Manual Diff / Slide Review NO; Basophils Absolute Auto 100 /uL (0-100); Basophils Percent Auto 0.6 % (0-2); Eosinophils Absolute Auto 100 /uL (0-450); Eosinophils Percent Auto 1.3 % (2-4); Hematocrit 41.8 % (36-46); Hemoglobin 14.4 g/dL (12.0-16.0); Lymphocytes Absolute Auto 3600 /uL (1100-4500); Lymphocytes Percent Auto 37.8 % (25-40); Mean Corpuscular HGB Conc 34.4 % (30-36); Mean Corpuscular Hemoglobin 30.7 PG (26-34); Mean Corpuscular Volume 89.2 fL (80-100); Monocytes Absolute Auto 1100 /uL (0-900); Monocytes Percent Auto 11.1 % (3-14); Neutrophils Absolute Auto 4700 /uL (1500-7000); Neutrophils Percent Auto 49.2 % (50-75); Platelet Count 261 X10^3/uL (150-400); Red Blood Cell Count 4.68 X10^6/uL (4.0-5.2); Red Cell Distribution Width 13.2 % (11.6-14.8); White Blood Cell Count 9.6 X10^3/uL (4.5-11.0)
[2020-08-11 19:40] LABS: INR 0.9 (0.9-1.3); Prothrombin Time 10.6 SECONDS (10.1-12.7)
[2020-08-11 19:43] LABS: PTT Partial Thromboplastin Tim 31 SECONDS (26.4-36.2)
[2020-08-11 19:45] LABS: BUN Creatinine Ratio 13.9 (6-22); Blood Urea Nitrogen 10 mg/dL (7-17); Carbon Dioxide 27 mmol/L (22-32); Chloride 105 mmol/L (98-107); Estimated Glomerular Filt Rate > 60.0 mL/min (>60); Glucose 97 mg/dL (70-100); HEMOLYSIS 16 (0-50); Potassium 3.8 mmol/L (3.4-5.1); Sodium 138 mmol/L (137-145)
[2020-08-11 20:05] VITALS: BP 116/64; PULSE 86; RESP 20; TEMP 36.9; O2SAT 98
== END 2020-08-11 20:05 | disposition home or self-care (01) ==
PROVIDERS: Emergency Provider Emergency Medicine
DX: N93.9 Abnormal uterine and vaginal bleeding, unspecified (principal); E66.9 Obesity, unspecified; Z68.34 Body mass index [BMI] 34.0-34.9, adult
CPT/HCPCS: 36415; 76830; 76856; 80048; 81003; 81025; 85025; 85610; 85730; 99284